=== PATIENT | male | born 1975 | race Caucasian/White ===

== ENCOUNTER 2016-11-24 10:28 | Emergency (ER) | payer OTHER ==
[~2016-11-24] VITALS: Ht 188 cm; Wt 88.5 kg
[2016-11-24] MEDS ORDERED: PENICILLIN V P500 MG PO (10:42)
[2016-11-24] MEDS ORDERED: MOBIC15 MG PO (10:42)
[2016-11-24 11:08] VITALS: BP 146/85
== END 2016-11-24 11:26 | disposition home or self-care (01) ==
LOC: ER 10:28
DX: K08.89 Other specified disorders of teeth and supporting structures (principal)